=== PATIENT | female | born 1965 | race Caucasian/White ===

== ENCOUNTER → 2017-11-23 12:11 | Outpatient (CLI) | payer OTHER, SELFPAY ==
--- NOTE | 2017-11-23 | DI.MG.S_ITS ---
BILATERAL DIGITAL SCREENING MAMMOGRAM 3D/2D WITH CAD: 11/23/2017 CLINICAL: Routine screening. Comparison is made to exams dated: 09/18/2014 mammogram, 10/19/2010 mammogram, and 09/30/2009 mammogram - [facility]. There are scattered fibroglandular elements in both breasts. Current study was also evaluated with a Computer Aided Detection (CAD) system. No significant masses, calcifications, or other findings are seen in either breast. There has been no significant interval change. IMPRESSION: NEGATIVE There is no mammographic evidence of malignancy. A 1 year screening mammogram is recommended. This exam was interpreted at Station ID: [id number]. NOTE: For mammograms, a report in lay terms will be sent to the patient. Approximately 15% of breast malignancies will not be visualized mammographically. In the management of a palpable breast mass, a negative mammogram must not discourage biopsy of a clinically suspicious lesion. Electronically Signed By: Jesse batres/dionicio:11/24/2017 10:09:53 letter sent: Normal Exam ACR BI-RADS Category 1: Negative [id number]
== END ==
PROVIDERS: Family Provider Family Medicine; Visit Provider Family Medicine
DX: Z12.31 Encounter for screening mammogram for malignant neoplasm of breast (principal)
CPT/HCPCS: 77063; 77067

== ENCOUNTER → 2018-06-07 19:50 | Outpatient (CLI) | payer OTHER, SELFPAY | PROVIDERS: Family Provider Family Medicine; PCP Family Medicine; Visit Provider Physician Assistant | DX: J02.9 Acute pharyngitis, unspecified (principal) | CPT/HCPCS: 87070 ==

== ENCOUNTER → 2019-12-25 17:37 | Outpatient (CLI) | payer OTHER, SELFPAY ==
--- NOTE | 2019-12-25 17:40 | DI.MG.S_ITS ---
BILATERAL DIGITAL SCREENING MAMMOGRAM 3D/2D WITH CAD: 12/25/2019 CLINICAL: Routine screening. Comparison is made to exams dated: 11/23/2017 mammogram, 09/18/2014 mammogram, and 10/19/2010 mammogram - [facility]. There are scattered fibroglandular elements in both breasts. Current study was also evaluated with a Computer Aided Detection (CAD) system. No significant masses, calcifications, or other findings are seen in either breast. There has been no significant interval change. IMPRESSION: NEGATIVE There is no mammographic evidence of malignancy. A 1 year screening mammogram is recommended. This exam was interpreted at Station ID: [id number]. NOTE: For mammograms, a report in lay terms will be sent to the patient. Approximately 15% of breast malignancies will not be visualized mammographically. In the management of a palpable breast mass, a negative mammogram must not discourage biopsy of a clinically suspicious lesion. Electronically Signed By: Yong kelly/dionicio:12/26/2019 07:46:38 letter sent: Normal Exam ACR BI-RADS Category 1: Negative [id number]
== END ==
PROVIDERS: Family Provider Family Medicine; PCP Family Medicine; Referring Provider Family Medicine; Visit Provider Family Medicine
DX: Z12.31 Encounter for screening mammogram for malignant neoplasm of breast (principal)
CPT/HCPCS: 77063; 77067

== ENCOUNTER 2020-01-23 20:34 | Emergency (ER) | payer OTHER, SELFPAY ==
[2020-01-23 20:39] VITALS: BP 127/78; PULSE 100; RESP 16; TEMP 37.6; O2SAT 98; BMI 34.2
--- NOTE | 2020-01-23 20:55 | PC.NURSE ---
pt decided that she did not want to stay. aware of consequences of VDC. paperwork signed and placed in chart.
== END 2020-01-23 20:57 | disposition left against medical advice (07) ==
PROVIDERS: Family Provider Family Medicine; PCP Family Medicine; Referring Provider Family Medicine
CPT/HCPCS: 99281

== ENCOUNTER 2020-02-02 00:16 | Emergency (ER) | payer OTHER, SELFPAY ==
[2020-02-02 00:27] VITALS: BP 125/71; PULSE 111; RESP 24; TEMP 37.2; O2SAT 97
--- NOTE | 2020-02-02 00:27 | DI.RAD.S_ITS ---
PROCEDURE: XR CHEST 1V INDICATIONS: suspected sepsis TECHNIQUE: One view of the chest was acquired. COMPARISON: None. FINDINGS: Surgical changes and devices: Cholecystectomy clips are seen. Lungs and pleura: Minimal left lower lung consolidation is seen, with obscuration of the left hemidiaphragm. An incomplete inspiratory result is noted, causing a crowded appearance to the lung markings. No pneumothorax or significant pleural effusions are seen. Mediastinum: Mediastinal contours appear normal. Heart size is normal. Bones and chest wall: Age-appropriate bony degenerative changes are seen. No suspicious bony lesions. Overlying soft tissues appear unremarkable. IMPRESSION: Minimal left lower lung consolidation is seen, with obscuration of the left hemidiaphragm. Differential diagnosis includes atelectasis and infiltrate. If clinically appropriate, a short-term followup chest series (with PA and lateral views) performed in deep inspiration is suggested for further evaluation. Note: No significant discrepancy from the preliminary report. Dictated by: Iker Sequeira M.D. on 02/02/2020 at 7:20 Approved by: Iker Sequeira M.D. on 02/02/2020 at 7:28
--- NOTE | 2020-02-02 00:39 | ED_ITS ---
HPI - Sepsis General Chief Complaint: Fever Mode of arrival: Ambulatory Source: patient Evaluation Sepsis Screen: Possible Sepsis Risk Sepsis Infection Criteria Present: Suspected New Infection Associated Symptoms: fever, chills and cough Narrative: 54-year-old female nonsmoker with a noncontributory medical history presents with her significant other and a chief complaint of fever, chills, body aches as well as a dry and hacking cough along with sore throat in the occasional headache over the past day or so. She denies any exposure to persons known to have coronavirus but her does work at the local [employer]. She has had no recent travel. She denies any abdominal pain, nausea, vomiting, dysuria, frequency or urgency. She has had no abnormal rash. She denies any change in her ability to smell. Review of Systems Constitutional Constitutional: Reports body ache(s), Reports chills, Denies fatigue, Reports fever(s), Denies frequent falls, Denies lethargy and Denies weakness Eyes Eyes: Denies change in vision, Denies eye discharge, Denies irritation and Denies loss of vision ENT Ears, Nose, Mouth, and Throat: Denies change in voice, Denies dizziness, Denies neck pain, Reports sore throat and Denies throat swelling Cardiovascular Cardiovascular: Denies chest pain, Denies irregular heart rhythm, Denies lightheadedness, Denies palpitations, Reports dyspnea, Denies dyspnea on exertion and Denies orthopnea Respiratory Respiratory: Reports cough, Reports dyspnea, Denies dyspnea on exertion and Denies wheezing Gastrointestinal Gastrointestinal: Denies abdominal pain, Denies change in bowel habits, Denies diarrhea, Denies nausea and Denies vomiting Musculoskeletal Musculoskeletal: Denies neck pain and Denies numbness Integumentary/Breasts Skin/Breast: Denies pruritus, Denies erythema, Denies rash and Denies wounds Neurologic Neurologic: Denies behavioral changes, Denies confusion, Denies dizziness, Denies frequent falls, Denies loss of vision, Denies numbness and Denies weakness Psychiatric Psychiatric: Denies anxiety, Denies behavioral changes, Denies confusion, Denies depression, Denies homicidal ideation and Denies suicidal ideation Endocrine Endocrine: Denies fatigue, Denies flushing and Denies palpitations Hematologic/Lymphatic Hematologic/Lymphatic: Denies easy bruising Allergic/Immunologic Allergic/Immunologic: Denies urticaria, Denies throat swelling and Denies wheezing Patient History Medical History Bleeding hemorrhoid (Acute) Social History Smoking Status: Never smoker Smoking Status: Never smoker Substance Use Type: does not use Exam Narrative Exam Narrative: GENERAL: [54] year old patient appears stated age. Well- nourished, well-developed patient, in mild distress. HEAD: Atraumatic. Normocephalic. EYES: Pupils equal round and reactive. Extraocular motions intact. No scleral icterus. No injection or drainage. ENT: Nose without bleeding, purulent drainage. Throat without erythema, tonsillar hypertrophy or exudate. Airway patent. NECK: Trachea midline. Non tender CARDIOVASCULAR: Tachycardic and irregular rhythm without murmurs, gallops, or rubs. RESPIRATORY: Clear to auscultation. Breath sounds equal bilaterally. No wheezes, rales, or rhonchi. Mild tachypnea GASTROINTESTINAL: Abdomen soft, non-tender, nondistended. EXTREMITIES: No edema or joint tenderness. BACK: Nontender without deformity or crepitance. No flank tenderness. NEURO: AOx3. SKIN: No rash or erythema of visible areas Initial Vital Signs Initial Vital Signs: Vital Signs Temperature 98.9 F 02/02/20 00:27 Pulse Rate 111 H 02/02/20 00:27 Respiratory Rate 24 02/02/20 00:27 Blood Pressure 125/71 02/02/20 00:27 Pulse Oximetry 97 02/02/20 00:27 Course Orders Ordered: ED Orders 02/02/20 00:27 XR chest 1V Stat EKG-12 Lead Stat RT Consult Eval and Treat Now 02/02/20 00:33 Complete Blood Count AUTO DIFF Stat Comprehensive Metabolic Panel Stat Lactate (Lactic Acid) Stat Lipase Stat Procalcitonin Stat 02/02/20 01:00 Partial Thromboplastin Time Stat Prothrombin Time INR Stat 02/02/20 01:10 Blood Culture Stat Discontinued Medications Sodium Chloride (Normal Saline 0.9%) 1,000 mls @ 1,000 mls/hr IV BOLUS ONE Stop: 02/02/20 01:26 Lactated Ringer's (Lactated Ringers) 2,177.25 mls @ 725.75 mls/hr 30 ml/kg infuse over 3 hr (2177.25 ml) IV NOW ONE Stop: 02/02/20 03:39 Last Infusion: 02/02/20 03:17 Dose: 0 mls/hr Documented by: Admin: 02/02/20 00:45 Dose: 725.75 mls/hr Documented by: MENDEZ Levofloxacin (Levaquin) 750 mg in 150 mls @ 100 mls/hr IV NOW ONE Stop: 02/02/20 02:20 Last Admin: 02/02/20 01:11 Dose: 100 mls/hr Documented by: MENDEZ Vital Signs Vital signs: Vital Signs - 8 hr 02/02/20 00:27 02/02/20 02:30 02/02/20 02:41 Temperature 98.9 F Pulse Rate 111 H 99 H 97 H Respiratory Rate 24 20 20 Blood Pressure 125/71 117/74 112/71 Pulse Oximetry 97 95 96 02/02/20 03:18 Temperature 99.5 F Pulse Rate Respiratory Rate Blood Pressure Pulse Oximetry MDM - Sepsis Lab Data Result diagrams: 02/02/20 00:33 02/02/20 00:33 Labs: Lab Results 02/02/20 02/02/20 02/02/20 Range/Units 00:33 00:33 00:33 WBC 11.9 H (4.5-11.0) X10^3/uL RBC 4.24 (4.0-5.2) X10^6/uL Hgb 12.4 (12.0-16.0) g/dL Hct 37.7 (36-46) % MCV 88.9 (80-100) fL MCH 29.1 (26-34) PG MCHC 32.7 (30-36) % RDW 13.8 (11.6-14.8) % Plt Count 292 (150-400) X10^3/uL Neut % (Auto) 73.8 (50-75) % Lymph % (Auto) 17.0 L (25-40) % [place] % (Auto) 7.5 (3-14) % Eos % (Auto) 1.3 L (2-4) % Baso % (Auto) 0.4 (0-2) % Neut # (Auto) 8800 H (9533-3717) /uL Lymph # (Auto) 2000 (7622-0261) /uL [place] # (Auto) 900 (0-900) /uL Eos # (Auto) 100 (0-450) /uL Baso # (Auto) 0 (0-100) /uL PT (10.1-12.7) SECONDS INR (0.9-1.3) APTT (26.4-36.2) SECONDS Sodium 135 L (137-145) mmol/L Potassium 4.0 (3.4-5.1) mmol/L Chloride 103 (98-107) mmol/L Carbon Dioxide 22 (22-32) mmol/L BUN 15 (7-17) mg/dL Creatinine 0.64 (0.52-1.04) mg/dL Estimated GFR > 60.0 (>60) mL/min BUN/Creatinine Ratio 23.4 H (6-22) Glucose 105 H (70-100) mg/dL Lactate (0.7-2.1) mmol/L Calcium 9.1 (8.4-10.2) mg/dL Total Bilirubin 0.6 (0.2-1.3) mg/dL AST 23 (14-36) IU/L ALT 16 (<35) IU/L Alkaline Phosphatase 53 (38-126) U/L Total Protein 7.9 (6.3-8.2) g/dL Albumin 4.3 (3.5-5.0) g/dL Globulin 3.6 (1.7-4.1) g/dL Albumin/Globulin Ratio 1.2 (1.0-2.8) Lipase 58 (23-300) U/L Procalcitonin < 0.05 (<0.5) ng/mL COVID-19 PCR (Negative) 02/02/20 02/02/20 02/02/20 Range/Units 00:33 01:00 01:00 WBC (4.5-11.0) X10^3/uL RBC (4.0-5.2) X10^6/uL Hgb (12.0-16.0) g/dL Hct (36-46) % MCV (80-100) fL MCH (26-34) PG MCHC (30-36) % RDW (11.6-14.8) % Plt Count (150-400) X10^3/uL Neut % (Auto) (50-75) % Lymph % (Auto) (25-40) % [place] % (Auto) (3-14) % Eos % (Auto) (2-4) % Baso % (Auto) (0-2) % Neut # (Auto) (9420-5882) /uL Lymph # (Auto) (8771-9229) /uL [place] # (Auto) (0-900) /uL Eos # (Auto) (0-450) /uL Baso # (Auto) (0-100) /uL PT 12.0 (10.1-12.7) SECONDS INR 1.0 (0.9-1.3) APTT 33 (26.4-36.2) SECONDS Sodium (137-145) mmol/L Potassium (3.4-5.1) mmol/L Chloride (98-107) mmol/L Carbon Dioxide (22-32) mmol/L BUN (7-17) mg/dL Creatinine (0.52-1.04) mg/dL Estimated GFR (>60) mL/min BUN/Creatinine Ratio (6-22) Glucose (70-100) mg/dL Lactate 0.7 (0.7-2.1) mmol/L Calcium (8.4-10.2) mg/dL Total Bilirubin (0.2-1.3) mg/dL AST (14-36) IU/L ALT (<35) IU/L Alkaline Phosphatase (38-126) U/L Total Protein (6.3-8.2) g/dL Albumin (3.5-5.0) g/dL Globulin (1.7-4.1) g/dL Albumin/Globulin Ratio (1.0-2.8) Lipase (23-300) U/L Procalcitonin (<0.5) ng/mL COVID-19 PCR Negative (Negative) Urine Dip Bedside Urine Glucose Negative Bedside Urine Bilirubin - Negative Bedside Urine Ketone ++ 40 Urine Specific [place] 1.005 Bedside Urine Occult Blood - Negative Bedside Urine Protein - Negative Bedside Urine Urobilinogen - Negative Bedside Urine Nitrite - Negative Bedside Urine Leukocytes - Negative Esterase Imaging Data Chest x-ray: Attestation: I personally reviewed and interpreted this imaging study as follows: My Impression: LLL PNA MDM Narrative Medical decision making narrative: Multiple etiologies for patient's symptoms considered including: [COVID vs. Pneumonia vs. UTI vs. other] Patient's symptoms improved over duration of stay with above-stated therapies. Findings and discharge diagnosis discussed with patient/family followed by verbalization of understanding Return precautions discussed with patient/family whom verbalize understanding. Discharge Plan Departure Patient Disposition: Home Clinical Impression: Left lower lobe pneumonia Qualifiers: Pneumonia type: due to unspecified organism Qualified Code(s): J18.9 - Pneumonia, unspecified organism Discharge Date/Time: 02/02/20 03:18 Instructions: DI for Pneumonia -- Adult Activity Restrictions/Additional Instructions: *You have been diagnosed with [ left lower lobe pneumonia. Your COVID swab was negative ] *What to do: *Take medications as directed: Prescription sent to [facility] *Follow up with your primary care provider in 2-3 days, call for an appointment. Let them know you were seen in the Emergency Department and that we ask that you be seen in follow up *Return to ER if you should have any new, worsening or concerning symptoms You have been prescribed Levaquin as an antibiotic. One rare, but concerning side effect is problems with your tendons. Should you develop pain in any of your joints discontinue the antibiotic and follow up with your provider immediately. Please consider taking probiotics to help offset the unfortunate, but common, gastrointestinal effects of antibiotics. Prescriptions: New levofloxacin [Levaquin] 750 mg tablet 750 mg PO DAILY Qty: 6 RF: 0 Referrals: Austin Donald MD [Primary Care Provider] -
[2020-02-02] MEDS: LACTATED RINGERS 2,177.25 ML 725.75 ML IV (00:45)
[2020-02-02 00:53] LABS: Add Manual Diff / Slide Review NO; Basophils Absolute Auto 0 /uL (0-100); Basophils Percent Auto 0.4 % (0-2); Eosinophils Absolute Auto 100 /uL (0-450); Eosinophils Percent Auto 1.3 % (2-4); Hematocrit 37.7 % (36-46); Hemoglobin 12.4 g/dL (12.0-16.0); Lymphocytes Absolute Auto 2000 /uL (1100-4500); Mean Corpuscular HGB Conc 32.7 % (30-36); Mean Corpuscular Hemoglobin 29.1 PG (26-34); Mean Corpuscular Volume 88.9 fL (80-100); Monocytes Absolute Auto 900 /uL (0-900); Monocytes Percent Auto 7.5 % (3-14); Neutrophils Absolute Auto 8800 /uL (1500-7000); Neutrophils Percent Auto 73.8 % (50-75); Platelet Count 292 X10^3/uL (150-400); Red Blood Cell Count 4.24 X10^6/uL (4.0-5.2); Red Cell Distribution Width 13.8 % (11.6-14.8); White Blood Cell Count 11.9 X10^3/uL (4.5-11.0)
[2020-02-02 01:01] LABS: Lactate (Lactic Acid) 0.7 mmol/L (0.7-2.1)
[2020-02-02 01:02] LABS: Alanine Aminotransferase 16 IU/L (<35); Albumin 4.3 g/dL (3.5-5.0); Albumin Globulin Ratio 1.2 (1.0-2.8); Alkaline Phosphatase 53 U/L (38-126); Aspartate Aminotransferase 23 IU/L (14-36); BUN Creatinine Ratio 23.4 (6-22); Bilirubin Total 0.6 mg/dL (0.2-1.3); Blood Urea Nitrogen 15 mg/dL (7-17); Calcium 9.1 mg/dL (8.4-10.2); Carbon Dioxide 22 mmol/L (22-32); Chloride 103 mmol/L (98-107); Estimated Glomerular Filt Rate > 60.0 mL/min (>60); Globulin 3.6 g/dL (1.7-4.1); Glucose 105 mg/dL (70-100); HEMOLYSIS < 15 (0-50); Lipase 58 U/L (23-300); Sodium 135 mmol/L (137-145); Total Protein 7.9 g/dL (6.3-8.2)
[2020-02-02] MEDS: levoFLOXacin 750 MG/150 ML PIGGYBACK 100 MG IV (01:11)
[2020-02-02 01:28] LABS: PTT Partial Thromboplastin Tim 33 SECONDS (26.4-36.2)
[2020-02-02 01:31] LABS: Procalcitonin < 0.05 ng/mL (<0.5)
[2020-02-02 02:22] LABS: COVID19 -Nasal RAPID Negative (Negative)
[2020-02-02 02:30] VITALS: BP 117/74; PULSE 99; RESP 20; O2SAT 95
[2020-02-02 02:41] VITALS: BP 112/71; PULSE 97; RESP 20; O2SAT 96
[2020-02-02 03:18] VITALS: TEMP 37.5
--- NOTE | 2020-02-28 06:24 | PC.NURSE ---
Late Entry Pt received Levaquin 750mg IV infusion started at 0111 and ended at 0241 on 02/02/20.
== END 2020-02-02 03:18 | disposition home or self-care (01) ==
PROVIDERS: Emergency Provider Emergency Medicine; Family Provider Family Medicine; PCP Family Medicine
DX: J18.9 Pneumonia, unspecified organism (principal); R05 Cough; J02.9 Acute pharyngitis, unspecified; R51 Headache
CPT/HCPCS: 36415; 71045; 80053; 81003; 83605; 83690; 84145; 85025; 85610; 85730; 87040; 87635; 93005; 93010; 96361; 96365; 99284; J1956

== ENCOUNTER 2020-03-29 02:16 | Emergency (ER) | payer OTHER, SELFPAY ==
[2020-03-29 02:20] VITALS: BP 144/73; PULSE 108; RESP 22; TEMP 37.7; O2SAT 97
--- NOTE | 2020-03-29 02:29 | DI.RAD.S_ITS ---
PROCEDURE: XR CHEST 1V INDICATIONS: fever TECHNIQUE: One view of the chest was acquired. COMPARISON: [facility], CR, XR CHEST 1V, 02/02/2020, 0:28. FINDINGS: Surgical changes and devices: None. Lungs and pleura: Lungs are clear. No pleural effusions or pneumothorax. Mediastinum: Mediastinal contours appear normal. Heart size is normal. Bones and chest wall: No suspicious bony lesions. Overlying soft tissues appear unremarkable. IMPRESSION: 1. No acute cardiopulmonary disease. Dictated by: Abisai Manuel M.D. on 03/29/2020 at 7:17 Approved by: Abisai Manuel M.D. on 03/29/2020 at 7:17
--- NOTE | 2020-03-29 02:29 | ED.GENADULT ---
HPI - General Adult General Chief complaint: Upper Respiratory Symptoms Stated complaint: states feverbody aches chills diff breathing Time Seen by Provider: 03/29/20 02:23 Source: patient Mode of arrival: Ambulatory Limitations: no limitations History of Present Illness HPI narrative: 54-year-old woman with no other significant medical issues presents with fevers, chills body aches present for 24 hours. She had pneumonia and was told she was close to sepsis about a month ago is concerned that this has returned. She reports no significant cough, abdominal pain, vomiting or diarrhea. She does note that she has been nauseated and she is having some chest pain and feels that her chest is very heavy right now. Significantly anxious about being in the emergency department at this time. Related Data Previous Rx's Medication Instructions Recorded levofloxacin [Levaquin] 750 mg PO DAILY #6 tab 02/02/20 Allergies Allergy/AdvReac Type Severity Reaction Status Date / Time acetaminophen [From Vicodin] Allergy Severe vomiting Verified 06/07/18 19:09 hydrocodone [From Vicodin] Allergy Severe vomiting Verified 06/07/18 19:09 zolpidem [From Ambien] Allergy Severe vomiting Verified 06/07/18 19:09 Review of Systems Review of Systems Narrative: Pertinent positive and negative findings as per HPI Remainder of review of systems is otherwise unremarkable for ENT: No sore throat, neck pain, ear pain CV: palpitations, dyspnea on exertion : Dysuria, hematuria, flank pain MS: Muscle weakness, numbness, joint swelling or warmth Skin: Rashes, nonhealing lesions Neuro: Syncope, dizziness, tingling Patient History Medical History Bleeding hemorrhoid (Acute) Social History Smoking Status: Never smoker Smoking Status: Never smoker Substance Use Type: does not use Exam Narrative Exam Narrative: General: Healthy appearing, anxious but able to give a complete and coherent history. Well-nourished well-developed HEENT: Moist mucous membranes, normal sclera with reactive pupils, Neck: No JVD, supple Respiratory: Lungs are clear to auscultation, no wheezing no rales no rhonchi. Full and symmetrical air movement Cardiac: Mild tachycardia but Regular rate and rhythm no murmurs no bruits Abdomen: Soft nontender good bowel tones, no flank pain Skin: Warm and dry, no rashes, well perfused Neurologic: Grossly neurologically intact with no obvious asymmetries or abnormalities Extremities: No trauma, no lower extremity edema Psych: Cooperative, appropriate insight and affect, anxious Initial Vital Signs Initial Vital Signs: Vital Signs Temperature 99.8 F H 03/29/20 02:20 Pulse Rate 108 H 03/29/20 02:20 Respiratory Rate 22 03/29/20 02:20 Blood Pressure 144/73 H 03/29/20 02:20 Pulse Oximetry 97 03/29/20 02:20 Course Orders Ordered: ED Orders 03/29/20 02:29 XR chest 1V Stat EKG-12 Lead Stat 03/29/20 02:40 COVID19 -ED/INPAT/OR/L&D Stat Complete Blood Count AUTO DIFF Stat Comprehensive Metabolic Panel Stat Lactate (Lactic Acid) Stat Troponin I Stat 03/29/20 02:50 Blood Culture Stat Sodium Chloride (Normal Saline 0.9%) 1,000 mls @ 1,000 mls/hr IV BOLUS ONE Stop: 03/29/20 03:27 Last Admin: 03/29/20 02:38 Dose: 1,000 mls/hr Documented by: RENEE Discontinued Medications Ketorolac Tromethamine (Toradol) 15 mg IV NOW ONE Stop: 03/29/20 02:29 Last Admin: 03/29/20 02:39 Dose: 15 mg Documented by: RENEE Ondansetron HCl (Zofran) 4 mg IV NOW ONE Stop: 03/29/20 02:29 Last Admin: 03/29/20 02:39 Dose: 4 mg Documented by: RENEE Vital Signs Vital signs: Vital Signs - 8 hr 03/29/20 02:20 Temperature 99.8 F H Pulse Rate 108 H Respiratory Rate 22 Blood Pressure 144/73 H Pulse Oximetry 97 Medical Decision Making Medical Records Medical records reviewed: Yes I reviewed the patient's medical records. Lab Data Lab results reviewed: Yes I reviewed the patient's lab results. Result diagrams: 03/29/20 02:40 03/29/20 02:40 Labs: Lab Results 03/29/20 03/29/20 03/29/20 Range/Units 02:40 02:40 02:40 WBC 8.7 (4.5-11.0) X10^3/uL RBC 4.40 (4.0-5.2) X10^6/uL Hgb 12.8 (12.0-16.0) g/dL Hct 39.4 (36-46) % MCV 89.6 (80-100) fL MCH 29.0 (26-34) PG MCHC 32.4 (30-36) % RDW 14.7 (11.6-14.8) % Plt Count 251 (150-400) X10^3/uL Neut % (Auto) 86.3 H (50-75) % Lymph % (Auto) 9.1 L (25-40) % [place] % (Auto) 3.2 (3-14) % Eos % (Auto) 1.1 L (2-4) % Baso % (Auto) 0.3 (0-2) % Neut # (Auto) 7500 H (4295-4671) /uL Lymph # (Auto) 800 L (0161-9039) /uL [place] # (Auto) 300 (0-900) /uL Eos # (Auto) 100 (0-450) /uL Baso # (Auto) 0 (0-100) /uL Sodium 139 (137-145) mmol/L Potassium 4.0 (3.4-5.1) mmol/L Chloride 105 (98-107) mmol/L Carbon Dioxide 28 (22-32) mmol/L BUN 11 (7-17) mg/dL Creatinine 0.77 (0.52-1.04) mg/dL Estimated GFR > 60.0 (>60) mL/min BUN/Creatinine Ratio 14.3 (6-22) Glucose 123 H (70-100) mg/dL Lactate (0.7-2.1) mmol/L Calcium 9.6 (8.4-10.2) mg/dL Total Bilirubin 0.4 (0.2-1.3) mg/dL AST 22 (14-36) IU/L ALT 19 (<35) IU/L Alkaline Phosphatase 52 (38-126) U/L Troponin I < 0.012 (0.01-0.034) ng/mL Total Protein 7.8 (6.3-8.2) g/dL Albumin 4.2 (3.5-5.0) g/dL Globulin 3.6 (1.7-4.1) g/dL Albumin/Globulin Ratio 1.2 (1.0-2.8) COVID-19 PCR (Negative) 03/29/20 03/29/20 Range/Units 02:40 02:40 WBC (4.5-11.0) X10^3/uL RBC (4.0-5.2) X10^6/uL Hgb (12.0-16.0) g/dL Hct (36-46) % MCV (80-100) fL MCH (26-34) PG MCHC (30-36) % RDW (11.6-14.8) % Plt Count (150-400) X10^3/uL Neut % (Auto) (50-75) % Lymph % (Auto) (25-40) % [place] % (Auto) (3-14) % Eos % (Auto) (2-4) % Baso % (Auto) (0-2) % Neut # (Auto) (8790-5339) /uL Lymph # (Auto) (3868-3619) /uL [place] # (Auto) (0-900) /uL Eos # (Auto) (0-450) /uL Baso # (Auto) (0-100) /uL Sodium (137-145) mmol/L Potassium (3.4-5.1) mmol/L Chloride (98-107) mmol/L Carbon Dioxide (22-32) mmol/L BUN (7-17) mg/dL Creatinine (0.52-1.04) mg/dL Estimated GFR (>60) mL/min BUN/Creatinine Ratio (6-22) Glucose (70-100) mg/dL Lactate 1.1 (0.7-2.1) mmol/L Calcium (8.4-10.2) mg/dL Total Bilirubin (0.2-1.3) mg/dL AST (14-36) IU/L ALT (<35) IU/L Alkaline Phosphatase (38-126) U/L Troponin I (0.01-0.034) ng/mL Total Protein (6.3-8.2) g/dL Albumin (3.5-5.0) g/dL Globulin (1.7-4.1) g/dL Albumin/Globulin Ratio (1.0-2.8) COVID-19 PCR Negative (Negative) Imaging Data Chest x-ray: Attestation: I personally reviewed and interpreted this imaging study as follows: My Impression: Unremarkable chest x-ray with resolution of left lower lobe consolidation noted in comparison on February 02, 2020 ECG Data Attestation: I personally reviewed and interpreted this ECG as follows: Interpretation: Sinus rhythm at a rate of 99 Normal intervals, normal axis Nonspecific ST-T wave changes Similar to comparison 02/02 2020 MDM Narrative Medical decision making narrative: 54-year-old woman with viral complaints and anxiety. Minor tachycardia, myalgias no significant cough. Influenza vaccine was done yesterday. Labs and chest x-ray do not suggest acute infection, sepsis, pneumonia. She is Covid negative, there is no evidence of acute coronary syndrome, pneumothorax or other life-threatening etiology Most likely diagnosis at this point is mild reaction to influenza vaccine and anxiety. She is safe for home discharge Discharge Plan Departure Patient Disposition: Home Clinical Impression: Myalgia Instructions: DI for Influenza -- Adult Activity Restrictions/Additional Instructions: Thank you for coming in today Your workup does not suggest sepsis, pneumonia (your chest x-ray has cleared nicely from January), heart attack or heart attack like syndrome. You are not anemic and your kidney and liver function all looked nice and normal. Your Covid test was negative today as well. I suspect that the myalgias and low-grade fever are both from the influenza shot. That is a good sign that you are going to have a brisk immune response to the influenza vaccine. I suspect that the low-grade temperature and achiness will resolve within 1-2 days Using 400 mg of ibuprofen (2 [id number] pills) and 1 Tylenol every 6 hours can be very helpful in controlling pain. Your next dose can be around 9:00 a.m.. If you feel that you are getting worse or you are developing new symptoms, please feel free to return to the emergency room for further evaluation. I hope you feel better Prescriptions: No Action levofloxacin [Levaquin] 750 mg tablet 750 mg PO DAILY Qty: 6 RF: 0 Referrals: Austin Donald MD [Primary Care Provider] -
[2020-03-29] MEDS: SODIUM CHLORIDE 0.9% 1,000 ML 1000 ML IV (02:38)
[2020-03-29] MEDS: ONDANSETRON 4 MG/2 ML INJ IV (02:39)
[2020-03-29] MEDS: KETOROLAC 60 MG/2 ML VIAL 15 MG IV (02:39)
[2020-03-29 03:02] LABS: Add Manual Diff / Slide Review NO; Basophils Absolute Auto 0 /uL (0-100); Basophils Percent Auto 0.3 % (0-2); Eosinophils Absolute Auto 100 /uL (0-450); Eosinophils Percent Auto 1.1 % (2-4); Hematocrit 39.4 % (36-46); Hemoglobin 12.8 g/dL (12.0-16.0); Lactate (Lactic Acid) 1.1 mmol/L (0.7-2.1); Lymphocytes Absolute Auto 800 /uL (1100-4500); Lymphocytes Percent Auto 9.1 % (25-40); Mean Corpuscular HGB Conc 32.4 % (30-36); Mean Corpuscular Volume 89.6 fL (80-100); Monocytes Absolute Auto 300 /uL (0-900); Monocytes Percent Auto 3.2 % (3-14); Neutrophils Absolute Auto 7500 /uL (1500-7000); Neutrophils Percent Auto 86.3 % (50-75); Platelet Count 251 X10^3/uL (150-400); Red Cell Distribution Width 14.7 % (11.6-14.8); White Blood Cell Count 8.7 X10^3/uL (4.5-11.0)
[2020-03-29 03:03] LABS: Alanine Aminotransferase 19 IU/L (<35); Albumin 4.2 g/dL (3.5-5.0); Albumin Globulin Ratio 1.2 (1.0-2.8); Alkaline Phosphatase 52 U/L (38-126); Aspartate Aminotransferase 22 IU/L (14-36); BUN Creatinine Ratio 14.3 (6-22); Bilirubin Total 0.4 mg/dL (0.2-1.3); Blood Urea Nitrogen 11 mg/dL (7-17); Calcium 9.6 mg/dL (8.4-10.2); Carbon Dioxide 28 mmol/L (22-32); Chloride 105 mmol/L (98-107); Estimated Glomerular Filt Rate > 60.0 mL/min (>60); Globulin 3.6 g/dL (1.7-4.1); Glucose 123 mg/dL (70-100); HEMOLYSIS < 15 (0-50); Sodium 139 mmol/L (137-145); Total Protein 7.8 g/dL (6.3-8.2)
[2020-03-29 03:07] LABS: COVID19 -Nasal RAPID Negative (Negative)
[2020-03-29 03:14] LABS: Troponin I < 0.012 ng/mL (0.01-0.034)
[2020-03-29 03:28] VITALS: BP 117/60; PULSE 94; RESP 17; O2SAT 94
== END 2020-03-29 03:31 | disposition home or self-care (01) ==
PROVIDERS: Emergency Provider Emergency Medicine; Family Provider Family Medicine; PCP Family Medicine
DX: M79.10 Myalgia, unspecified site (principal); R11.0 Nausea; R07.9 Chest pain, unspecified; F41.9 Anxiety disorder, unspecified
CPT/HCPCS: 36415; 71045; 80053; 83605; 84484; 85025; 87040; 87635; 93005; 96361; 96374; 96375; 99284; J1885; J2405

== ENCOUNTER → 2021-01-08 07:59 | Outpatient (CLI) | payer OTHER, SELFPAY | PROVIDERS: Family Provider Family Medicine; PCP Family Medicine; Visit Provider Physician Assistant | DX: R30.0 Dysuria (principal) | CPT/HCPCS: 87077; 87086; 87186 ==

== ENCOUNTER → 2021-04-27 17:03 | Outpatient (CLI) | payer OTHER, SELFPAY ==
[2021-04-27 18:34] LABS: COVID19 -Nasal RAPID Negative (Negative)
== END ==
PROVIDERS: Family Provider Family Medicine; PCP Family Medicine; Visit Provider Physician Assistant
DX: R30.9 Painful micturition, unspecified (principal); R52 Pain, unspecified; Z20.822 Contact with and (suspected) exposure to COVID-19
CPT/HCPCS: 87086; 87635

== ENCOUNTER → 2021-04-28 08:40 | Outpatient (CLI) | payer OTHER, SELFPAY ==
[2021-04-28 09:26] LABS: Add Manual Diff / Slide Review NO; Basophils Absolute Auto 0 /uL (0-100); Basophils Percent Auto 0.5 % (0-2); Eosinophils Absolute Auto 200 /uL (0-450); Eosinophils Percent Auto 3.2 % (2-4); Lymphocytes Absolute Auto 1300 /uL (1100-4500); Lymphocytes Percent Auto 26.6 % (25-40); Mean Corpuscular HGB Conc 33.3 % (30-36); Mean Corpuscular Volume 87.2 fL (80-100); Monocytes Absolute Auto 400 /uL (0-900); Monocytes Percent Auto 9.2 % (3-14); Neutrophils Absolute Auto 2900 /uL (1500-7000); Neutrophils Percent Auto 60.5 % (50-75); Platelet Count 280 X10^3/uL (150-400); Red Blood Cell Count 4.13 X10^6/uL (4.0-5.2); Red Cell Distribution Width 14.2 % (11.6-14.8); White Blood Cell Count 4.8 X10^3/uL (4.5-11.0)
[2021-04-28 09:31] LABS: Alanine Aminotransferase 13 IU/L (<35); Albumin Globulin Ratio 1.3 (1.0-2.8); Alkaline Phosphatase 48 U/L (38-126); Aspartate Aminotransferase 17 IU/L (14-36); BUN Creatinine Ratio 19.5 (6-22); Bilirubin Total 0.6 mg/dL (0.2-1.3); Blood Urea Nitrogen 15 mg/dL (7-17); Calcium 9.8 mg/dL (8.4-10.2); Carbon Dioxide 28 mmol/L (22-32); Chloride 103 mmol/L (98-107); Estimated Glomerular Filt Rate > 60.0 mL/min (>60); Glucose 98 mg/dL (70-100); HEMOLYSIS < 15 (0-50); Lipase 65 U/L (23-300); Sodium 139 mmol/L (137-145)
== END ==
PROVIDERS: Family Provider Family Medicine; PCP Family Medicine; Referring Provider Physician Assistant; Visit Provider Physician Assistant
DX: R10.9 Unspecified abdominal pain (principal)
CPT/HCPCS: 36415; 80053; 83690; 85025

== ENCOUNTER 2021-11-23 10:09 | Emergency (ER) | payer OTHER, SELFPAY ==
[2021-11-23] VITALS (9 sets, daily range): BP systolic 99–131; BP diastolic 55–88; PULSE 71–88; RESP 14–20; TEMP 36.6; O2SAT 95–98; BMI 33.0
--- NOTE | 2021-11-23 10:31 | DI.RAD.S_ITS ---
PROCEDURE: XR CHEST 1V INDICATIONS: chest pain TECHNIQUE: One view of the chest was acquired. COMPARISON: [facility], CR, XR CHEST 1V, 03/29/2020, 2:37. FINDINGS: Surgical changes and devices: None. Lungs and pleura: Lungs are clear. No pleural effusions or pneumothorax. Mediastinum: Mediastinal contours appear normal. Heart size is normal. Bones and chest wall: No suspicious bony lesions. Overlying soft tissues appear unremarkable. IMPRESSION: No acute cardiopulmonary pathology. Dictated by: Norm Quach M.D. on 11/23/2021 at 10:56 Approved by: Norm Quach M.D. on 11/23/2021 at 11:01
[2021-11-23 11:04] LABS: Add Manual Diff / Slide Review NO; Basophils Absolute Auto 0 /uL (0-100); Basophils Percent Auto 0.3 % (0-2); Eosinophils Absolute Auto 100 /uL (0-450); Eosinophils Percent Auto 1.8 % (2-4); Hematocrit 39.8 % (36-46); Hemoglobin 13.2 g/dL (12.0-16.0); Lymphocytes Absolute Auto 1800 /uL (1100-4500); Mean Corpuscular HGB Conc 33.2 % (30-36); Mean Corpuscular Hemoglobin 29.7 PG (26-34); Mean Corpuscular Volume 89.6 fL (80-100); Monocytes Absolute Auto 400 /uL (0-900); Monocytes Percent Auto 4.9 % (3-14); Neutrophils Absolute Auto 5600 /uL (1500-7000); Platelet Count 248 X10^3/uL (150-400); Red Blood Cell Count 4.44 X10^6/uL (4.0-5.2); Red Cell Distribution Width 14.1 % (11.6-14.8)
[2021-11-23 11:17] LABS: Alanine Aminotransferase 17 IU/L (<35); Albumin 4.5 g/dL (3.5-5.0); Albumin Globulin Ratio 1.3 (1.0-2.8); Alkaline Phosphatase 61 U/L (38-126); Aspartate Aminotransferase 24 IU/L (14-36); BUN Creatinine Ratio 24.7 (6-22); Bilirubin Total 0.3 mg/dL (0.2-1.3); Blood Urea Nitrogen 20 mg/dL (7-17); Calcium 9.5 mg/dL (8.4-10.2); Carbon Dioxide 25 mmol/L (22-32); Chloride 105 mmol/L (98-107); Creatine Kinase 60 U/L (30-135); Estimated Glomerular Filt Rate > 60 mL/min (>60); Globulin 3.4 g/dL (1.7-4.1); Glucose 94 mg/dL (70-100); HEMOLYSIS 19 (0-50); Lipase 116 U/L (23-300); Magnesium 1.9 mg/dL (1.6-2.3); Potassium 4.2 mmol/L (3.4-5.1); Sodium 138 mmol/L (137-145); Total Protein 7.9 g/dL (6.3-8.2)
[2021-11-23 11:27] LABS: Troponin I < 0.012 ng/mL (0.01-0.034)
[2021-11-23 13:03] LABS: Creatine Kinase 54 U/L (30-135)
[2021-11-23 13:15] LABS: Troponin I < 0.012 ng/mL (0.01-0.034)
--- NOTE | 2021-11-23 21:01 | ED.CHESTPAIN ---
HPI - Chest Pain <Sarah Breaux PA-C - Last Filed: 11/23/21 21:08> General Chief Complaint: Chest Pain Stated Complaint: SOB, chest pressure, shaky- referred by outdoor education teacher Time Seen by Provider: 11/23/21 12:10 Source: patient Mode of arrival: Ambulatory History of Present Illness HPI narrative: 56-year-old female with no significant past medical history presents to the ED with 1 episode of chest pain earlier today. Patient states that she was lifting some boxes at work, after which she experienced a 10 minute episode of substernal chest pain and mild shortness of breath. She describes the pain as a tightness in her chest like a weight on her chest. Patient says that her symptoms has since then resolved. Denies fever, chills, nausea, vomiting, abdominal pain, dysuria, lightheadedness, dizziness, syncope. Patient has no cardiac history. Patient states that her mother does have a history of angina, for which she used to take nitroglycerin. Related Data Home Medications Medication Instructions Recorded Confirmed No Known Home Medications 04/27/21 11/23/21 Allergies Allergy/AdvReac Type Severity Reaction Status Date / Time acetaminophen [From Vicodin] Allergy Severe vomiting Verified 11/23/21 10:35 hydrocodone [From Vicodin] Allergy Severe vomiting Verified 11/23/21 10:35 zolpidem [From Ambien] Allergy Severe vomiting Verified 11/23/21 10:35 Review of Systems <Sarah Breaux PA-C - Last Filed: 11/23/21 21:08> Review of Systems ROS Unobtainable: All systems reviewed & are unremarkable except as noted in HPI and below Constitutional Constitutional: Denies chills, Denies fatigue, Denies fever(s), Denies frequent falls, Denies lethargy and Denies weakness Eyes Eyes: Denies change in vision, Denies eye discharge, Denies irritation and Denies loss of vision ENT Ears, Nose, Mouth, and Throat: Denies change in voice, Denies dizziness, Denies neck pain, Denies sore throat and Denies throat swelling Cardiovascular Cardiovascular: Reports chest pain, Denies irregular heart rhythm, Denies lightheadedness, Denies palpitations, Reports dyspnea, Denies dyspnea on exertion and Denies orthopnea Respiratory Respiratory: Denies cough, Reports dyspnea, Denies dyspnea on exertion and Denies wheezing Gastrointestinal Gastrointestinal: Denies abdominal pain, Denies change in bowel habits, Denies diarrhea, Denies nausea and Denies vomiting Genitourinary Genitourinary: Denies hematuria, Denies flank pain, Denies urinary incontinence and Denies urinary urgency Musculoskeletal Musculoskeletal: Denies back pain, Denies muscle weakness, Denies neck pain, Denies numbness and Denies tingling Integumentary/Breasts Skin/Breast: Denies pruritus, Denies erythema, Denies rash and Denies wounds Neurologic Neurologic: Denies behavioral changes, Denies confusion, Denies dizziness, Denies frequent falls, Denies loss of vision, Denies numbness, Denies tingling and Denies weakness Psychiatric Psychiatric: Denies anxiety, Denies behavioral changes, Denies confusion, Denies depression, Denies homicidal ideation and Denies suicidal ideation Endocrine Endocrine: Denies fatigue, Denies flushing and Denies palpitations Hematologic/Lymphatic Hematologic/Lymphatic: Denies easy bruising Allergic/Immunologic Allergic/Immunologic: Denies urticaria, Denies throat swelling and Denies wheezing Patient History <Sarah Breaux PA-C - Last Filed: 11/23/21 21:08> Medical History Bleeding hemorrhoid UTI (urinary tract infection) Social History Smoking Status: Never smoker Smoking Status: Never smoker alcohol intake frequency: other Substance Use Type: does not use Exam <Sarah Breaux PA-C - Last Filed: 11/23/21 21:08> Narrative Exam Narrative: Const General:?cooperative, healthy appearing and comfortable [facility] Head:?normal to inspection Ears:?hearing grossly normal bilaterally Nose:?external nose normal Face and sinus:?normal facial exam and sinuses nontender Mouth:?oral mucosae normal Throat:?posterior oropharynx normal Eyes General:?appearance normal, both eyes and all related structures Neck Neck:?normal visual inspection and no lymphadenopathy noted Resp Effort & Inspection:?normal respiratory effort Auscultation:?clear to auscultation bilaterally Cardio Rate:?regular rate Rhythm:?regular rhythm Neuro General:?patient alert, patient awake and patient oriented x3 Initial Vital Signs Initial Vital Signs: Vital Signs Temperature 97.9 F 11/23/21 10:28 Pulse Rate 88 11/23/21 10:28 Respiratory Rate 17 11/23/21 10:28 Blood Pressure 131/88 11/23/21 10:28 Pulse Oximetry 96 11/23/21 10:28 <DO Lucero Duque Last Filed: 11/24/21 08:15> Initial Vital Signs Initial Vital Signs: Vital Signs Temperature 97.9 F 11/23/21 10:28 Pulse Rate 88 11/23/21 10:28 Respiratory Rate 17 11/23/21 10:28 Blood Pressure 131/88 11/23/21 10:28 Pulse Oximetry 96 11/23/21 10:28 Course <Sarah Breaux PA-C - Last Filed: 11/23/21 21:08> Orders Ordered: ED Orders 11/23/21 12:42 Troponin & CK Cardiac Panel Stat Vital Signs Vital signs: Vital Signs - 8 hr 11/23/21 13:30 11/23/21 13:31 Pulse Rate 75 73 Respiratory Rate 20 Blood Pressure 110/55 L Pulse Oximetry 97 96 <Tangela London DO - Last Filed: 11/24/21 08:15> Orders Ordered: ED Orders 11/23/21 12:42 Troponin & CK Cardiac Panel Stat Vital Signs Vital signs: Vital Signs - 8 hr 11/23/21 13:30 11/23/21 13:31 Pulse Rate 75 73 Respiratory Rate 20 Blood Pressure 110/55 L Pulse Oximetry 97 96 MDM - Chest Pain <NATHAN Hampton Last Filed: 11/23/21 21:08> Lab Data Result diagrams: 11/23/21 10:45 11/23/21 10:45 Labs: Lab Results 11/23/21 11/23/21 11/23/21 Range/Units 10:45 10:45 12:42 WBC 8.0 (4.5-11.0) X10^3/uL RBC 4.44 (4.0-5.2) X10^6/uL Hgb 13.2 (12.0-16.0) g/dL Hct 39.8 (36-46) % MCV 89.6 (80-100) fL MCH 29.7 (26-34) PG MCHC 33.2 (30-36) % RDW 14.1 (11.6-14.8) % Plt Count 248 (150-400) X10^3/uL Neut % (Auto) 71.0 (50-75) % Lymph % (Auto) 22.0 L (25-40) % [place] % (Auto) 4.9 (3-14) % Eos % (Auto) 1.8 L (2-4) % Baso % (Auto) 0.3 (0-2) % Neut # (Auto) 5600 (5293-0096) /uL Lymph # (Auto) 1800 (5066-4037) /uL [place] # (Auto) 400 (0-900) /uL Eos # (Auto) 100 (0-450) /uL Baso # (Auto) 0 (0-100) /uL Sodium 138 (137-145) mmol/L Potassium 4.2 (3.4-5.1) mmol/L Chloride 105 (98-107) mmol/L Carbon Dioxide 25 (22-32) mmol/L BUN 20 H (7-17) mg/dL Creatinine 0.81 (0.52-1.04) mg/dL Estimated GFR > 60 (>60) mL/min BUN/Creatinine Ratio 24.7 H (6-22) Glucose 94 (70-100) mg/dL Calcium 9.5 (8.4-10.2) mg/dL Magnesium 1.9 (1.6-2.3) mg/dL Total Bilirubin 0.3 (0.2-1.3) mg/dL AST 24 (14-36) IU/L ALT 17 (<35) IU/L Alkaline Phosphatase 61 (38-126) U/L Total Creatine Kinase 60 54 (30-135) U/L CK-MB (CK-2) TNP TNP CK-MB (CK-2) Rel Index TNP TNP Troponin I < 0.012 < 0.012 (0.01-0.034) ng/mL Total Protein 7.9 (6.3-8.2) g/dL Albumin 4.5 (3.5-5.0) g/dL Globulin 3.4 (1.7-4.1) g/dL Albumin/Globulin Ratio 1.3 (1.0-2.8) Lipase 116 (23-300) U/L Imaging Data Chest x-ray: Radiologist's Impression: PROCEDURE:? XR CHEST 1V ? INDICATIONS:? chest pain ? TECHNIQUE:? One view of the chest was acquired.? ? COMPARISON:? [facility], CR, XR CHEST 1V, 03/29/2020, 2:37. ? FINDINGS:? ? Surgical changes and devices:? None.? ? Lungs and pleura:? Lungs are clear.? No pleural effusions or pneumothorax.? ? Mediastinum:? Mediastinal contours appear normal.? Heart size is normal.? ? Bones and chest wall:? No suspicious bony lesions.? Overlying soft tissues appear unremarkable.? ? IMPRESSION:? No acute cardiopulmonary pathology. ? ? Dictated by: Norm Quach M.D. on 11/23/2021 at 10:56 ? ? Approved by: Norm Quach M.D. on 11/23/2021 at 11:01 ? ECG Data Interpretation: Normal sinus rhythm, no axis deviation, no acute ST-T changes MDM Narrative Medical decision making narrative: 56-year-old female with no significant past medical history presents to the ED with 1 episode of chest pain earlier today. Concern for ACS versus pneumonia versus GERD versus musculoskeletal sprain/strain. Will obtain EKG, chest x-ray, labs, troponin. Chest x-ray, EKG without acute findings. Troponin x2 normal. Discharge patient home with integrity assessor follow up, ED return precautions. Patient verbalized understanding. <Tangela London, DO - Last Filed: 11/24/21 08:15> Lab Data Labs: Lab Results 11/23/21 11/23/21 11/23/21 Range/Units 10:45 10:45 12:42 WBC 8.0 (4.5-11.0) X10^3/uL RBC 4.44 (4.0-5.2) X10^6/uL Hgb 13.2 (12.0-16.0) g/dL Hct 39.8 (36-46) % MCV 89.6 (80-100) fL MCH 29.7 (26-34) PG MCHC 33.2 (30-36) % RDW 14.1 (11.6-14.8) % Plt Count 248 (150-400) X10^3/uL Neut % (Auto) 71.0 (50-75) % Lymph % (Auto) 22.0 L (25-40) % [place] % (Auto) 4.9 (3-14) % Eos % (Auto) 1.8 L (2-4) % Baso % (Auto) 0.3 (0-2) % Neut # (Auto) 5600 (1463-4947) /uL Lymph # (Auto) 1800 (2901-6927) /uL [place] # (Auto) 400 (0-900) /uL Eos # (Auto) 100 (0-450) /uL Baso # (Auto) 0 (0-100) /uL Sodium 138 (137-145) mmol/L Potassium 4.2 (3.4-5.1) mmol/L Chloride 105 (98-107) mmol/L Carbon Dioxide 25 (22-32) mmol/L BUN 20 H (7-17) mg/dL Creatinine 0.81 (0.52-1.04) mg/dL Estimated GFR > 60 (>60) mL/min BUN/Creatinine Ratio 24.7 H (6-22) Glucose 94 (70-100) mg/dL Calcium 9.5 (8.4-10.2) mg/dL Magnesium 1.9 (1.6-2.3) mg/dL Total Bilirubin 0.3 (0.2-1.3) mg/dL AST 24 (14-36) IU/L ALT 17 (<35) IU/L Alkaline Phosphatase 61 (38-126) U/L Total Creatine Kinase 60 54 (30-135) U/L CK-MB (CK-2) TNP TNP CK-MB (CK-2) Rel Index TNP TNP Troponin I < 0.012 < 0.012 (0.01-0.034) ng/mL Total Protein 7.9 (6.3-8.2) g/dL Albumin 4.5 (3.5-5.0) g/dL Globulin 3.4 (1.7-4.1) g/dL Albumin/Globulin Ratio 1.3 (1.0-2.8) Lipase 116 (23-300) U/L Discharge Plan Departure Patient Disposition: Home Clinical Impression: Chest pain Instructions: DI for Chest Pain Activity Restrictions/Additional Instructions: You were evaluated in the ED today for an episode of chest pain. You have been pain free in the emergency room, your labs, chest x-ray, EKG were normal. We repeated your heart enzyme troponin twice, and both were normal. Your chest x-ray does not show any indication of pneumonia. It is likely your symptoms are caused by acid reflux or an episode of chest pain or angina. Given that you have a family history of angina, please follow-up with a integrity assessor as soon as possible for further workup. If your chest pain returns, you have shortness of breath, nausea, vomiting, please return to the ED. Prescriptions: No Action No Known Home Medications 0RF Referrals: Austin Donald MD [Primary Care Provider] - Visit Report Forms: Patient Portal/API <Tangela London DO - Last Filed: 11/24/21 08:15> Cosign ED Attending Herveature Attestation: I was immediately available in the department for consultation. Documentation has been reviewed.
== END 2021-11-23 13:37 | disposition home or self-care (01) ==
PROVIDERS: Emergency Medicine; Emergency Provider Student in an Organized Health Care Education/Training Program; Family Provider Family Medicine; PCP Family Medicine
DX: R07.9 Chest pain, unspecified (principal); R06.02 Shortness of breath
CPT/HCPCS: 36415; 71045; 80053; 82550; 83690; 83735; 84484; 85025; 93005; 93010; 99284

== ENCOUNTER → 2022-02-09 13:00 | Outpatient (CLI) | payer OTHER, SELFPAY ==
--- NOTE | 2022-02-09 13:01 | DI.ECHO.S_ITS ---
[facility] +---------+ : : [address] [address] : : : : [id number] : : : : Phone: [phone]+ Echocardiogram Report + + :Name: SHANEL MARTINEZ Study Date: 02/09/2022 Height: 62.5 in: :[facility] ReadingLocation: Weight: 180 lb : : Gender: Female BSA: 1.8 m2 : :: 1965 Age: 56 yrs BP: 121/85 mmHg: :Reason For Study: CHEST PAIN : :Ordering Physician: SONNY, : :HERNAN Performed By: Disha Man : :Referring: HERNAN DENNIS : + + Interpretation Summary The ejection fraction is estimated to be 60-65%. Diastolic parameters suggest probable normal left ventricular diastolic function and normal filling pressures. The right ventricle is normal in size and function. No significant valvular abnormalities. Unable to estimate PASP. Procedure: A two-dimensional transthoracic echocardiogram with color flow and Doppler was performed. The study quality was technically adequate. There is no prior echocardiogram noted for this patient. The patient was in sinus rhythm with heart rates between 62-71 bpm during the exam. Left Ventricle: The left ventricle is normal in size and wall thickness. The ejection fraction is estimated to be 60-65%. Diastolic parameters suggest probable normal left ventricular diastolic function and normal filling pressures. Right Ventricle: The right ventricle is normal in size and function. Atria: The left atrial size is normal. Right atrial size is normal. There is no Doppler evidence for an interatrial shunt. Mitral Valve: The mitral valve is normal in structure and function. There is trace mitral regurgitation. Aortic Valve: The aortic valve is trileaflet. The aortic valve opens well. There is no aortic valve stenosis. No aortic regurgitation is present. Tricuspid Valve: The tricuspid valve is normal in structure and function. There is trace tricuspid regurgitation. Pulmonic Valve: The pulmonic valve is not well visualized. There is trace pulmonic regurgitation. Great Vessels: The aortic root is normal size. The dimensions of the ascending aorta are normal. The IVC is of normal diameter and collapses greater than 50% with a sniff. This suggests a low right atrial pressure of 3 mm Hg. Pericardium/ Pleura There is no pericardial effusion. There is no pleural effusion. MMode/2D Measurements & Calculations LVIDd: 4.9 cm LVOT diam: 2.0 cm LVIDs: 3.4 cm Ao root diam: 3.2 cm FS: 30.8 % asc Aorta Diam: 3.3 cm EPSS: 0.68 cm Ao Arch Diam (Prox Trans): 3.0 cm IVSd: 0.91 cm LVPWd: 0.83 cm LV del rosario. diameter/BSA (cm/m^2): 2.6 LV sys. diameter/BSA (cm/m^2): 1.8 LA A2 area: 17.7 cm2 RA long axis: 5.2 cm LA A4 area: 17.1 cm2 RA area: 16.2 cm2 LA length (vol): 5.0 cm RA vol: 42.9 ml LA vol: 50.9 ml RA : 23.4 ml/m2 LA vol index: 27.7 ml/m2 IVC diam: 1.6 cm RVD1 (basal): 3.5 cm RVD2 (mid): 3.5 cm TAPSE: 2.0 cm Doppler Measurements & Calculations Ao V2 max: 156.8 cm/sec LVOT Max Wilmer: 101.5 cm/sec Ao V2 mean: 105.2 cm/sec LV V1 max P.1 mmHg Ao max P.8 mmHg LV V1 VTI: 21.9 cm Ao mean P.2 mmHg ERICA(I,D): 2.1 cm2 Ao V2 VTI: 32.8 cm ERICA(V,D): 2.1 cm2 sev ratio: 0.67 ERICA indexed to BSA (cm^2/m^2): 1.2 MV E max wilmer: 82.0 cm/sec PA V2 max: 86.6 cm/sec MV A max wilmer: 66.3 cm/sec PA V2 mean: 57.6 cm/sec MV E/A: 1.2 PA mean P.5 mmHg Med Peak E' Wilmer: 5.7 cm/sec PA pr(Accel): 25.9 mmHg E/E' med: 14.5 Lat Peak E' Wilmer: 12.7 cm/sec E/E' lat: 6.5 E/e' average: 10.5 MV dec time: 0.21 sec SVAMBROSE): 70.5 ml Reading Physician:04:02 PM
[2022-02-09 13:39] LABS: COVID19 -Nasal RAPID POSITIVE (Negative)
--- NOTE | 2022-02-09 19:36 | DI.NM.S_ITS ---
DATE OF SERVICE: 02/09/2022 PROCEDURE: Exercise stress test. INDICATION: Chest pain, exertional shortness of breath. CARDIAC STRESS: The patient underwent exercise stress test under the supervision of an attending staff. The patient walked on Damian protocol for 7 minutes, 21 seconds, achieved maximum heart rate of 170, which was 103 percent of target heart rate. Based baseline blood pressure 130/72 mmHg. Peak blood pressure reported to be 170/100 mmHg. Achieved 10.1 METs of workload. ALISSA 0 percent. Baseline rhythm sinus. During stress, no convincing ischemic changes seen. No significant arrhythmias seen. There was normal recovery pattern. No chest discomfort. However, had moderate shortness of breath. CONCLUSION: Exercise stress test is negative for inducible ischemia. Walked on Damian protocol for 7 minutes and 21 seconds and achieved 10.1 metabolic equivalents of workload. Peak blood pressure 170/100 mmHg. No ischemic electrocardiographic changes or significant arrhythmias seen. No chest pain. Had moderate shortness of breath. Overall low-risk exercise stress test. Sarita Peck - Denny/jessica doc#: [id number]/job#: [id number] dd: 02/09/2022 17:20:00 dt: 02/09/2022 18:18:00 DICTATING /COPIES TO: Shavonne Valverde MD COPIES MNE: HIREN;
== END ==
PROVIDERS: Family Provider Family Medicine; PCP Family Medicine; Referring Provider Family Medicine; Visit Provider Family Medicine
DX: U07.1 COVID-19 (principal); R07.9 Chest pain, unspecified; R06.02 Shortness of breath
CPT/HCPCS: 87635; 93017; 93306

== ENCOUNTER → 2022-02-18 07:41 | Outpatient (CLI) | payer OTHER, SELFPAY ==
--- NOTE | 2022-02-18 | DI.MG.S_ITS ---
BILATERAL DIGITAL SCREENING MAMMOGRAM 3D/2D WITH CAD: 02/18/2022 CLINICAL: Routine screening. Comparison is made to exams dated: 12/25/2019 mammogram, 11/23/2017 mammogram, and 09/18/2014 mammogram - [facility]. There are scattered areas of fibroglandular density in both breasts (category b / 25%-50% glandular tissue). Current study was also evaluated with a Computer Aided Detection (CAD) system. No significant masses, calcifications, or other findings are seen in either breast. There has been no significant interval change. IMPRESSION: NEGATIVE There is no mammographic evidence of malignancy. A 1 year screening mammogram is recommended. Based on the Tyrer Cuzick model (a risk assessment model) the patient's lifetime risk is 5.8% and her 10 year risk is 1.7%. According to the ACR, ACS, and NCCN guidelines, an annual breast MRI exam along with mammogram is recommended if the patient's lifetime risk is 20% or greater. This exam was interpreted at Station ID: [id number]. NOTE: For mammograms, a report in lay terms will be sent to the patient. Approximately 15% of breast malignancies will not be visualized mammographically. In the management of a palpable breast mass, a negative mammogram must not discourage biopsy of a clinically suspicious lesion. Electronically Signed By: Kemar lopez/dionicio:02/23/2022 13:30:34 letter sent: Normal Exam ACR BI-RADS Category 1: Negative 3341F
== END ==
PROVIDERS: Family Provider Family Medicine; PCP Family Medicine; Referring Provider Family Medicine; Visit Provider Family Medicine
DX: Z12.31 Encounter for screening mammogram for malignant neoplasm of breast (principal)
CPT/HCPCS: 77063; 77067

== ENCOUNTER → 2022-03-08 09:50 | Outpatient (CLI) | payer OTHER, SELFPAY ==
--- NOTE | 2022-03-26 16:23 | P.HOLT.S_ITS ---
Sports Management Professor Report Referral & Results Date Patient Seen: 03/08/22 Requesting provider: Austin Donald Indication: Dyspnea Duration of monitoring (days): 12 Diary information: There were 3 patient triggered events. These 3 events were associated with sinus rhythm and PVCs Data: Minimum heart rate identified was 47 beats per minute at 02:26 on 03/19/2022 Maximum sinus heart rate was 147 beats per minute at 19:22 on 03/15/2022, and this was the maximum overall heart rate Less than 1% of identified beats were ventricular or supraventricular ectopic in origin, which would classify them as rare. There were no pauses of 3 seconds or longer, runs of atrial fibrillation or SVT identified on this study Impression: 12 day awake overnight monitor demonstrating rare PVCs and rare PACs. No other significant dysrhythmias identified on this study
== END ==
PROVIDERS: Family Provider Family Medicine; PCP Family Medicine; Referring Provider Family Medicine; Visit Provider Family Medicine
DX: R06.00 Dyspnea, unspecified (principal); R06.09 Other forms of dyspnea
CPT/HCPCS: 93246; 93248

== ENCOUNTER → 2022-06-24 07:11 | Outpatient (CLI) | payer OTHER, SELFPAY | PROVIDERS: Family Provider Family Medicine; PCP Family Medicine; Visit Provider Registered Nurse | DX: N39.0 Urinary tract infection, site not specified (principal) | CPT/HCPCS: 87077; 87086; 87186 ==

== ENCOUNTER → 2022-08-02 07:27 | Outpatient (CLI) | payer OTHER, SELFPAY | PROVIDERS: Family Provider Family Medicine; PCP Family Medicine; Visit Provider Nurse Practitioner Family | DX: R30.0 Dysuria (principal) | CPT/HCPCS: 87086; 87210 ==

== ENCOUNTER → 2023-03-12 08:11 | Outpatient (CLI) | payer OTHER, SELFPAY ==
--- NOTE | 2023-03-12 08:12 | DI.MG.S_ITS ---
BILATERAL DIGITAL SCREENING MAMMOGRAM 3D/2D WITH CAD: 03/12/2023 CLINICAL: Routine screening. Comparison is made to exams dated: 02/18/2022 mammogram, 12/25/2019 mammogram, and 11/23/2017 mammogram - [facility]. There are scattered areas of fibroglandular density in both breasts (category b / 25%-50% glandular tissue). Current study was also evaluated with a Computer Aided Detection (CAD) system. No significant masses, calcifications, or other findings are seen in either breast. IMPRESSION: NEGATIVE There is no mammographic evidence of malignancy. A 1 year screening mammogram is recommended. Based on the Tyrer Cuzick model (a risk assessment model) the patient's lifetime risk is 5.7% and her 10 year risk is 1.8%. According to the ACR, ACS, and NCCN guidelines, an annual breast MRI exam along with mammogram is recommended if the patient's lifetime risk is 20% or greater. This exam was interpreted at Station ID: [id number]. NOTE: For mammograms, a report in lay terms will be sent to the patient. Approximately 15% of breast malignancies will not be visualized mammographically. In the management of a palpable breast mass, a negative mammogram must not discourage biopsy of a clinically suspicious lesion. Electronically Signed By: Joy jo/dionicio:03/14/2023 16:21:06 letter sent: Normal Exam ACR BI-RADS Category 1: Negative 3341F
== END ==
PROVIDERS: Family Provider Family Medicine; PCP Family Medicine; Referring Provider Family Medicine; Visit Provider Family Medicine
DX: Z12.31 Encounter for screening mammogram for malignant neoplasm of breast (principal)
CPT/HCPCS: 77063; 77067

== ENCOUNTER → 2023-07-11 08:11 | Outpatient (CLI) | payer OTHER, SELFPAY ==
[2023-07-11 09:23] LABS: Influenza A - CEPHEID Flu A NEGATIVE (NEGATIVE); Influenza B - CEPHEID Flu B NEGATIVE (NEGATIVE); Respiratory Syncytial Virus Negative (Negative)
[2023-07-11 09:24] LABS: COVID-19 CEPHEID 4-PLEX PCR Negative (Negative)
== END ==
PROVIDERS: Family Provider Family Medicine; PCP Family Medicine; Visit Provider Nurse Practitioner Family
DX: Z20.828 Contact with and (suspected) exposure to other viral communicable diseases (principal); J02.9 Acute pharyngitis, unspecified
CPT/HCPCS: 0241U; 87070

== ENCOUNTER → 2023-07-25 15:52 | Outpatient (CLI) | payer OTHER, SELFPAY ==
--- NOTE | 2023-07-25 | DI.RAD.S_ITS ---
PROCEDURE: XR CHEST 2V INDICATIONS: fever TECHNIQUE: 2 views of the chest were acquired. COMPARISON: [facility], CR, XR CHEST 1V, 11/23/2021, 10:33. FINDINGS: Surgical changes and devices: None. Lungs and pleura: Lungs are clear. No pleural effusions or pneumothorax. Mediastinum: Mediastinal contours are normal. Heart size is normal. Bones and chest wall: No suspicious bony abnormalities. Soft tissues appear unremarkable. IMPRESSION: No acute cardiopulmonary pathology. Dictated by: Norm Quach M.D. on 07/25/2023 at 16:48 Approved by: Norm Quach M.D. on 07/25/2023 at 16:48
== END ==
LOC: RAD 15:52
PROVIDERS: Family Provider Family Medicine; PCP Family Medicine; Referring Provider Registered Nurse; Visit Provider Registered Nurse
DX: R50.9 Fever, unspecified (principal)
CPT/HCPCS: 71046

== ENCOUNTER → 2023-08-15 08:45 | Outpatient (CLI) | payer OTHER, SELFPAY ==
--- NOTE | 2023-08-15 | DI.US.S_ITS ---
PROCEDURE: US PELVIC COMPLETE INDICATIONS: POSTMENO BLEEDING SINCE STARTING HRT 04/2023 TECHNIQUE: Real-time scanning was performed of the pelvic organs, with image documentation. Additional endovaginal scanning was necessary due to incomplete visualization of the adnexal and endometrial structures by transabdominal scanning. COMPARISON: [facility], CT, ABDOMEN/PELVIS WITH CONTRAST, 04/04/2012, 10:13. FINDINGS: Uterus: Uterus is anteverted and normal in size at 7.2 x 4.8 x 3.5 cm. The myometrium is heterogeneous. The endometrium measures 5.1 mm combined thickness. Ovaries: The right ovary measures 1.3 x 1.3 x 0.8 cm, with a calculated ovarian volume of 0.8 cc. The left ovary measures 1.9 x 1.1 x 0.8 cm, with a calculated ovarian volume of 0.9 cc. The ovaries have a normal sonographic appearance. Less than 12 follicles can be seen in each ovary. No adnexal masses are seen. Other: No pathologic free abdominal or pelvic fluid. IMPRESSION: Thickened endometrium considering postmenopausal state with bleeding. Despite no defined mass, endometrial sampling is recommended to exclude presence of malignancy. We strive to produce accurate, complete, and clear reports of imaging services. To assist us in improving patient care, this report was composed using standard report templates and voice recognition software. Therefore, it may contain abnormal punctuation, insertions and/or omissions. Occasional wrong-word or sound-alike substitutions may occur. Though we review the report and make efforts to correct it, we do recommend that the report be read carefully in proper context to recognize any text inaccuracies. Dictated by: Janelle Ruiz M.D. on 08/16/2023 at 14:34 Approved by: Janelle Ruiz M.D. on 08/16/2023 at 14:37
== END ==
LOC: US 08:45
PROVIDERS: Family Provider Family Medicine; PCP Family Medicine; Referring Provider Family Medicine; Visit Provider Family Medicine
DX: N95.0 Postmenopausal bleeding (principal); R93.89 Abnormal findings on diagnostic imaging of other specified body structures
CPT/HCPCS: 76830; 76856

== ENCOUNTER 2023-09-29 10:36 | Emergency (ER) | payer OTHER, SELFPAY ==
[2023-09-29 10:37] VITALS: BP 120/64; PULSE 90; RESP 14; TEMP 36.9; O2SAT 96; BMI 30.2
--- NOTE | 2023-09-29 11:37 | ED.ABDPAIN ---
HPI - Abdominal Pain General Chief Complaint: Abdominal Pain Stated Complaint: abd pain Time Seen by Provider: 09/29/23 10:43 Source: patient Mode of arrival: Ambulatory Limitations: no limitations History of Present Illness HPI narrative: 58-year-old female with history of chronic abdominal pain intermittent has been pain-free for a couple of years. Patient states pain started a and lasted for approximately an hour was lower pelvic little bit radiating to her back sort of crampy. Patient states no fevers or chills, no passing out, she was nauseated but no vomiting. States she has been stooling regularly with no diarrhea or constipation. No black or bloody stools. No dysuria urgency or frequency. No vaginal bleeding or discharge. She states pain has since resolved. She states she did not really want to be seen by her significant other insisted she be evaluated. Patient states no fevers recently. Had some fevers a month ago but none since. She has seen her physician for this in the past. Has been referred to Gastroenterology. Has not seen them yet. She has had colonoscopies in the past secondary to family history of colon cancer she is about 2 years overdue but has a referral in place to get a colonoscopy. Patient states she is on omeprazole as well as estrogen and testosterone. Has been getting injections for weight loss with Ozempic. States prior cholecystectomy. No tobacco, alcohol or recreational drugs. Odilon is her primary care physician. Related Data Home Medications Medication Instructions Recorded Confirmed No Known Home Medications 08/02/22 07/11/23 Allergies Allergy/AdvReac Type Severity Reaction Status Date / Time acetaminophen [From Vicodin] Allergy Severe vomiting Verified 09/29/23 10:43 hydrocodone [From Vicodin] Allergy Severe vomiting Verified 09/29/23 10:43 zolpidem [From Ambien] Allergy Severe vomiting Verified 09/29/23 10:43 Review of Systems Review of Systems ROS Unobtainable: All systems reviewed & are unremarkable except as noted in HPI and below Patient History Medical History UTI (urinary tract infection) Bleeding hemorrhoid Social History Smoking Status: Never smoker Smoking Status: Never smoker alcohol intake frequency: other Substance Use Type: does not use Exam Narrative Exam Narrative: GENERAL: Alert and oriented x three, female in no acute distress. HEENT: Head normocephalic, atraumatic, EOMI, pupils reactive, face symmetric, moist mucous membranes NECK: Supple, full range of motion CARDIOVASCULAR: Regular rate and rhythm without murmurs, rubs or gallops. RESPIRATORY: Breath sounds equal bilaterally, no wheezes rales or rhonchi. ABDOMEN: Soft, nontender. Nondistended. Normoactive bowel sounds all 4 quadrants. No guarding or rebound, rigidity, no mass : No CVA tenderness EXTREMITIES: Normal range of motion, no clubbing or edema. Neurovascularly intact NEUROLOGICAL: Cranial nerves II through XII grossly intact. Moving all extremities SKIN: Warm, dry, no petechiae, no rashes or lesions. Initial Vital Signs Initial Vital Signs: Vital Signs Temperature 98.4 F 09/29/23 10:37 Pulse Rate 90 09/29/23 10:37 Respiratory Rate 14 09/29/23 10:37 Blood Pressure 120/64 09/29/23 10:37 Pulse Oximetry 96 09/29/23 10:37 Oxygen Delivery Method Room Air 09/29/23 10:37 Course Vital Signs Vital signs: Vital Signs - 8 hr 09/29/23 10:37 09/29/23 12:17 Temperature 98.4 F 97.9 F Pulse Rate 90 80 Respiratory Rate 14 19 Blood Pressure 120/64 109/69 Pulse Oximetry 96 97 Oxygen Delivery Method Room Air Room Air MDM - Abdominal Pain Lab Data Point of care testing: Point of Care Testing Test Results Negative Urine Dip Bedside Urine Glucose Negative Bedside Urine Bilirubin - Negative Bedside Urine Ketone + 15 Urine Specific [place] 1.020 Bedside Urine Occult Blood - Negative Bedside Urine pH 6.0 Bedside Urine Protein - Negative Bedside Urine Urobilinogen - Negative Bedside Urine Nitrite - Negative Bedside Urine Leukocytes - Negative Esterase MDM Narrative Medical decision making narrative: 58-year-old female with acute on chronic abdominal pain. Patient states she has been fairly pain-free for the last year so. Feels very similar to prior episodes. Urine is negative for acute change. Patient states she does not really wish for additional workup she does not wish for lab or imaging at this time. She has follow up in place with primary care, she is also in process of getting her follow up colonoscopy put in place. Vitals are appropriate. Discussed with patient return precautions all questions answered Discharge Plan Departure Patient Disposition: Home Clinical Impression: Abdominal pain Instructions: DI for Abdominal Pain-Adult Activity Restrictions/Additional Instructions: Follow up with physician for recheck. I agree with your plan to follow up and have a colonoscopy. If you are having persistent abdominal pain on and off it would be appropriate to follow up with Gastroenterology if no clear sources found. Please return for fevers new or worsening pain, persistent vomiting, black or bloody stools, difficulty with urination, new vaginal bleeding or other new or concerning changes. Prescriptions: No Action No Known Home Medications Referrals: Austin Donald MD [Primary Care Provider] - Stand Alone Forms: Patient Portal/API
[2023-09-29 12:17] VITALS: BP 109/69; PULSE 80; RESP 19; TEMP 36.6; O2SAT 97
== END 2023-09-29 12:17 | disposition home or self-care (01) ==
PROVIDERS: Emergency Provider Emergency Medicine; Family Provider Family Medicine; PCP Family Medicine
DX: R10.9 Unspecified abdominal pain (principal)
CPT/HCPCS: 81003; 81025; 99282

== ENCOUNTER → 2024-04-07 08:14 | Outpatient (CLI) | payer OTHER, SELFPAY ==
--- NOTE | 2024-04-07 | DI.MG.S_ITS ---
BILATERAL DIGITAL SCREENING MAMMOGRAM 3D/2D WITH CAD: 04/07/2024 CLINICAL: Routine screening. Comparison is made to exams dated: 02/18/2022 mammogram, 03/12/2023 mammogram, and 12/25/2019 mammogram - [facility]. There are scattered areas of fibroglandular density (category b / 25%-50% glandular tissue). Current study was also evaluated with a Computer Aided Detection (CAD) system. There is a possible asymmetry with an obscured margin in the left breast posterior depth superior region seen on the mediolateral oblique view only. No other significant masses, calcifications, or other findings are seen in either breast. IMPRESSION: INCOMPLETE: NEED ADDITIONAL IMAGING EVALUATION The possible asymmetry in the left breast is indeterminate. Additional views with possible ultrasound are recommended. Based on the Tyrer Cuzick model (a risk assessment model) the patient's lifetime risk is 5.6% and her 10 year risk is 1.9%. According to the ACR, ACS, and NCCN guidelines, an annual breast MRI exam along with mammogram is recommended if the patient's lifetime risk is 20% or greater. This exam was interpreted at Station ID: [id number]. NOTE: For mammograms, a report in lay terms will be sent to the patient. Approximately 15% of breast malignancies will not be visualized mammographically. In the management of a palpable breast mass, a negative mammogram must not discourage biopsy of a clinically suspicious lesion. Electronically Signed By: Dennis Acevedo M.D. slc/:04/07/2024 09:28:52 letter sent: Additional Imaging Needed ACR BI-RADS Category 0: Incomplete: Need Additional Imaging Evaluation
== END ==
PROVIDERS: Family Provider Family Medicine; PCP Family Medicine; Referring Provider Family Medicine; Visit Provider Family Medicine
DX: Z12.31 Encounter for screening mammogram for malignant neoplasm of breast (principal)
CPT/HCPCS: 77063; 77067

== ENCOUNTER → 2024-05-01 08:34 | Outpatient (CLI) | payer OTHER, SELFPAY ==
--- NOTE | 2024-05-01 08:36 | DI.MG.S_ITS ---
UNILATERAL LEFT DIGITAL DIAGNOSTIC MAMMOGRAM 3D/2D WITH ADDITIONAL VIEWS: 05/01/2024 CLINICAL: Additional evaluation requested from prior study. Comparison is made to exams dated: 04/07/2024 mammogram, 03/12/2023 mammogram, and 02/18/2022 mammogram - [facility]. There are scattered areas of fibroglandular density (category b / 25%-50% glandular tissue). There is a 9 mm oval low density focal asymmetry with an obscured and circumscribed margin in the left breast at 3 o'clock posterior depth. This is confirmed with additional views. No other significant masses or calcifications are seen in the breast. IMPRESSION: INCOMPLETE: NEED ADDITIONAL IMAGING EVALUATION The 9 mm asymmetry in the left breast persists with additional views but remains indeterminate. It is likely is a cyst or an intramammary node. An ultrasound is recommended. This was performed immediately following this exam. Based on the Tyrer Cuzick model (a risk assessment model) the patient's lifetime risk is 5.6% and her 10 year risk is 1.9%. According to the ACR, ACS, and NCCN guidelines, an annual breast MRI exam along with mammogram is recommended if the patient's lifetime risk is 20% or greater. This exam was interpreted at Station ID: [id number]. NOTE: For mammograms, a report in lay terms will be sent to the patient. Approximately 15% of breast malignancies will not be visualized mammographically. In the management of a palpable breast mass, a negative mammogram must not discourage biopsy of a clinically suspicious lesion. Electronically Signed By: Edith ambriz/:05/01/2024 09:08:47 letter sent: Additional Imaging Needed ACR BI-RADS Category 0: Incomplete: Need Additional Imaging Evaluation
--- NOTE | 2024-05-01 08:36 | DI.US.S_ITS ---
LIMITED ULTRASOUND OF LEFT BREAST: 05/01/2024 CLINICAL: Patient returns today to evaluate a focal asymmetry in the left breast. Comparison is made to exams dated: 05/01/2024 mammogram, 04/07/2024 mammogram, 03/12/2023 mammogram, 02/18/2022 mammogram, and 12/25/2019 mammogram - [facility]. Color flow and real-time ultrasound of the left breast 3 o'clock region were performed. Acosta scale images of the real-time examination were reviewed. No significant abnormalities were seen sonographically in the left breast. Specifically, no finding to correspond to the patient's mammographic abnormality. An incidental, anechoic, prominent duct without focal ectasia is present in the 3:00 position. No other findings. IMPRESSION: PROBABLY BENIGN No sonographic correlate to the 9 mm oval mammogram finding. A follow-up mammogram and possible ultrasound in 6 months is recommended to demonstrate stability. Findings and recommendations were conveyed to the patient at time of exam. This exam was interpreted at Station ID: [id number]. Electronically Signed By: Edith ambriz/:05/01/2024 09:36:15 letter sent: Followup Recommended ACR BI-RADS Category 3: Probably Benign
== END ==
PROVIDERS: Family Provider Family Medicine; PCP Family Medicine; Referring Provider Family Medicine; Visit Provider Family Medicine
DX: R92.8 Other abnormal and inconclusive findings on diagnostic imaging of breast (principal); R92.322 Mammographic fibroglandular density, left breast
CPT/HCPCS: 76642; 77065; G0279

== ENCOUNTER → 2024-10-30 17:09 | Outpatient (CLI) | payer OTHER, SELFPAY ==
[2024-10-30 18:20] LABS: COVID-19 CEPHEID 4-PLEX PCR Negative (Negative); Influenza A - CEPHEID Flu A NEGATIVE (NEGATIVE); Influenza B - CEPHEID Flu B NEGATIVE (NEGATIVE); Respiratory Syncytial Virus Negative (Negative)
== END ==
PROVIDERS: Family Provider Family Medicine; PCP Family Medicine; Visit Provider Nurse Practitioner Family
DX: R05.1 Acute cough (principal); J02.9 Acute pharyngitis, unspecified
CPT/HCPCS: 0241U; 87070

== ENCOUNTER → 2024-12-06 08:41 | Outpatient (CLI) | payer OTHER, SELFPAY ==
--- NOTE | 2024-12-06 08:42 | DI.MG.S_ITS ---
MM diagnostic mammo unilat LT: 12/06/2024. BI-RADS: 3 CLINICAL: 59-year old female for left diagnostic mammogram and ultrasound (if needed). followup 05/01/2024. Tyrer-Cuzick lifetime risk of 13.3%. Current reported family history of breast cancer: sister. PRIOR EXAMS 05/01/2024, 04/07/2024, 03/12/2023, 02/18/2022, MAMMOGRAPHY TECHNIQUE: 2D and 3D (tomosynthesis) digital mammographic views obtained, with additional images as needed for full coverage. Current study was also evaluated with a Computer Aided Detection (CAD) system. DENSITY Left: C. The breasts are heterogeneously dense, which may obscure small masses. MAMMOGRAPHY FINDINGS Left: Outer at 3:00, Middle depth: This was not seen on prior US. There is a focal asymmetry present that is unchanged in size and appearance. IMPRESSION: Left (Asymmetry): Outer at 3:00, Middle depth * Probably Benign. RECOMMENDATIONS Left: Outer at 3:00, Middle depth * Six month followup with diagnostic mammography. OVERALL ASSESSMENT CATEGORY BI-RADS-3: Probably Benign. ELECTRONICALLY SIGNED: Kemar Dasilva M.D. on 12/07/2024 at 04:44:53 PM PT Interpreting Station ID: [id number]
== END ==
LOC: MAMMO 08:41
PROVIDERS: Family Provider Family Medicine; PCP Family Medicine; Referring Provider Family Medicine; Visit Provider Family Medicine
DX: R92.8 Other abnormal and inconclusive findings on diagnostic imaging of breast (principal); N64.4 Mastodynia; N63.21 Unspecified lump in the left breast, upper outer quadrant; R92.332 Mammographic heterogeneous density, left breast; Z80.3 Family history of malignant neoplasm of breast
CPT/HCPCS: 77065; G0279

== ENCOUNTER 2025-05-11 17:48 | Emergency (ER) | payer OTHER, SELFPAY ==
[2025-05-11 18:02] VITALS: BP 133/75; PULSE 75; RESP 18; TEMP 36.6; O2SAT 98; BMI 30.2
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
[2025-05-11 22:11] VITALS: BP 117/66; PULSE 70; RESP 20; O2SAT 97
== END 2025-05-11 22:13 | disposition home or self-care (01) ==
PROVIDERS: Emergency Provider Emergency Medicine; Family Provider Family Medicine; PCP Family Medicine
DX: S16.1XXA Strain of muscle, fascia and tendon at neck level, initial encounter (principal); S29.012A Strain of muscle and tendon of back wall of thorax, initial encounter; R51.9 Headache, unspecified; R42 Dizziness and giddiness; V43.62XA Car passenger injured in collision with other type car in traffic accident, initial encounter; Y92.410 Unspecified street and highway as the place of occurrence of the external cause
CPT/HCPCS: 70450; 72125; 72128; 72131; 99283; 99284